=== PATIENT | male | born 1945 | race Caucasian/White ===

== ENCOUNTER 2017-08-03 08:42 | Day surgery (SDC) | payer BC, MEDICARE, OTHER ==
[~2017-08-03 08:42] MED LIST: CHONDR SU A NA/HYALUR INTRAOC KIT (SURGICARE) ONE; EPINEPHRINE INJ/PF 1 MG/1 ML AMPULE ONE; KETOROLAC TROMETHAMINE 0.45% 4 DROP/0.4 ML DROPERETTE OS PRN; LIDOCAINE 1% INJ-PF (10 MG/ML) 30 ML SDV ONE; TOBRAMYCIN SULFATE/DEXAMETH OPH OINTMENT 3.5 GM ONE
[2017-08-03] MEDS: CYCLOPENTOLATE 0.2%/PHENYLEPHRINE 1% OPH SOLN 2 ML OS PRN ×3 (08:55→09:16)
[2017-08-03] MEDS: TROPICAMIDE 1% OPH SOLN 3 ML OS PRN ×3 (08:55→09:16)
[2017-08-03] MEDS: TETRACAINE HCL 0.5% OPH SOLN 0.6 ML DROPERETTE OS PRN ×3 (08:56→09:27)
[2017-08-03] MEDS: BESIFLOXACIN HCL 0.6% OPH SUSP 5 ML BOTTLE OS PRN ×3 (08:56→09:48)
[2017-08-03] MEDS ORDERED: MIDAZOLAM 2 MG/2 ML INJ ONE ×2 (09:10)
[2017-08-03] MEDS ORDERED: FENTANYL CITRATE INJ/PF 100 MCG/2 ML AMPUL ONE (09:11)
== END 2017-08-03 10:31 | disposition home or self-care (01) ==
LOC: SC 08:42
PROVIDERS: ATTEND Ophthalmology
DX: H25.12 Age-related nuclear cataract, left eye (principal); I10 Essential (primary) hypertension; E78.00 Pure hypercholesterolemia, unspecified; M19.90 Unspecified osteoarthritis, unspecified site; G47.30 Sleep apnea, unspecified; Z88.8 Allergy status to other drugs, medicaments and biological substances; Z79.82 Long term (current) use of aspirin; Z79.899 Other long term (current) drug therapy
CPT/HCPCS: 66984; V2630; J2250; J3490 ×3; J0171; J3010; 142

== ENCOUNTER 2017-08-10 16:56 | Emergency (ER) | payer OTHER, MEDICARE ==
--- NOTE | 2017-08-10 18:23 | ER Document Report ---
ED Medical Screen (RME) - General Chief Complaint: Blood Pressure Problem Stated Complaint: BLOOD PRESSURE ISSUES Time Seen by Provider: 08/10/17 18:15 TRAVEL OUTSIDE OF THE [place] IN LAST 30 DAYS: No - HPI Notes: 08/10/17 18:17 Patient is a 71-year-old male with history of hypertension who presents to the ED via EMS with concern of elevated blood pressure, intermittent chest tightness , dizziness, intermittent headache, agitation, and an occasional cough. Patient states that the symptoms began over the last several days. states that she has noticed a personality change as he is usually an easy-going and laid back person, but has been lashing out and very agitated recently. 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 Patient is still eating and drinking I difficulties. He is urinating normally and having normal bowel movements. Patient states that he currently does not have any headache or chest pain at this moment. called EMS because his blood pressure was elevated and having another episode of agitation. Denies any fever, head injury, neck pain, URI, sore throat, palpitations, syncope, shortness of breath, wheeze, dyspnea, abdominal pain, nausea/vomiting/diarrhea, urinary retention, dysuria, hematuria , loss of control of bowel or bladder, numbness/tingling, saddle anesthesia, muscle paralysis/weakness, or rash. I have treated and performed a rapid initial assessment of this patient. A comprehensive ED assessment and evaluation of the patient, analysis of test results and completion of medical decision making process will be conducted by additional ED providers. PHYSICAL EXAMINATION: GENERAL: Well-appearing, well-nourished and in no acute distress. A&Ox4. Answers questions appropriately. Eyes: PERRLA, EOMI. LUNGS: Breath sounds clear to auscultation bilaterally and equal. No wheezes rales or rhonchi. HEART: Regular rate and rhythm without murmurs, rubs, gallops. ABDOMEN: difficult too assess in chair. Extremities: No cyanosis, clubbing, or edema b/l. MS: Strength b/l equal 5+/5. NEUROLOGICAL: Normal speech, normal gait. NIH 0. Cranial nerves grossly intact. GCS 15. Pronator drift neg. PSYCH: Normal mood, normal affect. - Related Data Allergies/Adverse Reactions: No Known Allergies Allergy (Verified 08/10/17 16:57) Past Medical History - Past Medical History Cardiac Medical History: Reports: Hx Hypertension - MEDS Denies: Hx Heart Attack Pulmonary Medical History: Denies: Hx Asthma Neurological Medical History: Denies: Hx Cerebrovascular Accident, Hx Seizures - HX OF BREAKDOWNS GI Medical History: Denies: Hx Hepatitis, Hx Hiatal Hernia, Hx Ulcer Infectious Medical History: Denies: Hx Hepatitis Past Surgical History: Denies: Hx Open Heart Surgery, Hx Pacemaker Physical Exam - Vital signs Vitals: Temp Pulse Resp BP Pulse Ox 97.9 F 67 16 202/102 H 97 08/10/17 17:04 08/10/17 17:04 08/10/17 17:04 08/10/17 17:04 08/10/17 17:04 Course - Vital Signs Vital signs: Temp Pulse Resp BP Pulse Ox 97.9 F 67 16 202/102 H 97 08/10/17 17:04 08/10/17 17:04 08/10/17 17:04 08/10/17 17:04 08/10/17 17:04
[2017-08-10 18:27] LABS: ABSOLUTE EOSINOPHILS # (AUTO) 0.2 10^3/uL (0.0-0.6); ABSOLUTE LYMPHOCYTES (AUTO) 2.4 10^3/uL (0.5-4.7); ABSOLUTE MONOCYTES (AUTO) 0.6 10^3/uL (0.1-1.4); ABSOLUTE NEUT (AUTO) 4.5 10^3/uL (1.7-8.2); BASOPHILS % (AUTO) 0.5 % (0-2); EOSINOPHILS % (AUTO) 2.2 % (0-6); HEMATOCRIT 41.7 % (37.9-51.0); HEMOGLOBIN 13.9 g/dL (13.5-17.0); LYMPHOCYTES % (AUTO) 31.1 % (13-45); MEAN CORPUSCULAR HEMOGLOBIN 29.5 pg (27.0-33.4); MEAN CORPUSCULAR HGB CONC 33.4 g/dL (32.0-36.0); MEAN CORPUSCULAR VOLUME 88 fl (80-97); MONOCYTES % (AUTO) 8.3 % (3-13); PLATELET COUNT 413 10^3/uL (150-450); RED BLOOD COUNT 4.72 10^6/uL (4.35-5.55); RED CELL DISTRIBUTION WIDTH 13.4 % (11.5-14.0); SEGMENTED NEUTROPHILS % (AUTO) 57.9 % (42-78); TOTAL CELLS COUNTED % (AUTO) 100 %; WHITE BLOOD COUNT 7.8 10^3/uL (4.0-10.5)
--- NOTE | 2017-08-10 18:57 | RADIOLOGY REPORT (SQ) ---
EXAM DESCRIPTION: CHEST SINGLE VIEW COMPLETED DATE/TIME: 08/10/2017 6:37 pm REASON FOR STUDY: cough, chest pain COMPARISON: None. EXAM PARAMETERS: NUMBER OF VIEWS: One view. TECHNIQUE: Single frontal radiographic view of the chest acquired. RADIATION DOSE: NA LIMITATIONS: None. FINDINGS: LUNGS AND PLEURA: No opacities, masses or pneumothorax. No pleural effusion. MEDIASTINUM AND HILAR STRUCTURES: No masses. Contour normal. HEART AND VASCULAR STRUCTURES: Heart normal in size. Normal vasculature. BONES: No acute findings. HARDWARE: None in the chest. OTHER: No other significant finding. IMPRESSION: NO ACUTE RADIOGRAPHIC FINDING IN THE CHEST. TECHNICAL DOCUMENTATION: JOB ID: [id number] [employer]- All Rights Reserved Reading location - IP/workstation name: [email or web address]
--- NOTE | 2017-08-10 19:02 | RADIOLOGY REPORT (SQ) ---
EXAM DESCRIPTION: CT HEAD WITHOUT COMPLETED DATE/TIME: 08/10/2017 6:44 pm REASON FOR STUDY: intermittent ZULETA with agitation/personality changes COMPARISON: None. TECHNIQUE: Axial images acquired through the brain without intravenous contrast. Images reviewed wi th bone, brain and subdural windows. Additional sagittal and coronal reconstructions were generated. Images stored on PACS. All CT scanners at this facility use dose modulation, iterative reconstruction, and/or weight based d osing when appropriate to reduce radiation dose to as low as reasonably achievable (ALARA). [facility]: Dose Right [facility]: CareDose [facility]: Dose Right [facility]: Teradose 4D [facility]: Smart [employer] RADIATION DOSE: CT Rad equipment meets quality standard of care and radiation dose reduction techniq ues were employed. CTDIvol: 53.2 mGy. DLP: 991 mGy-cm. mGy. LIMITATIONS: None. FINDINGS: VENTRICLES: Normal size and contour. CEREBRUM: No masses. No hemorrhage. No midline shift. No evidence for acute infarction. Normal gra y/white matter differentiation. No areas of low density in the white matter. CEREBELLUM: No masses. No hemorrhage. No alteration of density. No evidence for acute infarction. EXTRAAXIAL SPACES: No fluid collections. No masses. ORBITS AND GLOBE: No intra- or extraconal masses. Normal contour of globe without masses. CALVARIUM: No fracture. PARANASAL SINUSES: No fluid or mucosal thickening. SOFT TISSUES: No mass or hematoma. OTHER: No other significant finding. IMPRESSION: NORMAL BRAIN CT WITHOUT CONTRAST. EVIDENCE OF ACUTE STROKE: NO. COMMENT: Quality ID # [id number]: Final reports with documentation of one or more dose reduction techniques (e.g., Automated exposure control, adjustment of the mA and/or kV according to patient size, use of iterative reconstruction technique) TECHNICAL DOCUMENTATION: JOB ID: [id number] [employer]- All Rights Reserved Reading location - IP/workstation name: [email or web address]
[2017-08-10 19:25] LABS: ALANINE AMINOTRANSFERASE 39 U/L (21-72); ALBUMIN 4.5 g/dL (3.5-5.0); ALKALINE PHOSPHATASE 128 U/L (38-126); ANION GAP 14 (5-19); ASPARTATE AMINO TRANSFERASE 38 U/L (17-59); BILIRUBIN,DIRECT 0.5 mg/dL (0.0-0.4); BILIRUBIN,TOTAL 1.7 mg/dL (0.2-1.3); BLOOD UREA NITROGEN 14 mg/dL (7-20); CALCIUM 10.7 mg/dL (8.4-10.2); CARBON DIOXIDE 28 mmol/L (22-30); CHLORIDE 100 mmol/L (98-107); CREATINE KINASE 44 U/L (55-170); GLUCOSE 100 mg/dL (75-110); TOTAL PROTEIN 7.9 g/dL (6.3-8.2)
[2017-08-10 19:31] LABS: APPEARANCE,URINE CLEAR; BILIRUBIN,URINE NEGATIVE (NEGATIVE); COLOR,URINE YELLOW; GLUCOSE, URINE NEGATIVE (NEGATIVE); KETONES,URINE NEGATIVE (NEGATIVE); LEUKOCYTE ESTERASE,URINE NEGATIVE (NEGATIVE); NITRITE,URINE NEGATIVE (NEGATIVE); PROTEIN,URINE NEGATIVE (NEGATIVE); URINE SPECIFIC GRAVITY 1.009; UROBILINOGEN,URINE NEGATIVE mg/dL (<2.0)
[2017-08-10 19:36] LABS: CREATINE KINASE MB 0.71 ng/mL (<4.55); TROPONIN I 0.022 ng/mL
--- NOTE | 2017-08-10 21:56 | ER Document Report ---
ED Blood Pressure Problem - General Chief Complaint: Blood Pressure Problem Stated Complaint: BLOOD PRESSURE ISSUES Time Seen by Provider: 08/10/17 18:15 Mode of Arrival: Medic Information source: Patient, Relative TRAVEL OUTSIDE OF THE [place] IN LAST 30 DAYS: No - HPI Patient complains to provider of: High blood pressure Onset: Last week - PROBABLY, NOT SURE Onset/Duration: Gradual Quality of pain: No pain Problem is: Chronic problem Pt currently taking medication for problem: Yes - HCTZ, 12.5mg/d Associated symptoms: Other - MILD CONFUSION, MEMORY LAPSES Similar symptoms previously: Yes Recently seen / treated by doctor: No Notes: Patient has a known history of sleep apnea, admits to being noncompliant with his CPAP mask. - Related Data Allergies/Adverse Reactions: No Known Allergies Allergy (Verified 08/10/17 16:57) Past Medical History - General Information source: Patient, Relative - Social History Smoking Status: Never Smoker Chew tobacco use (# tins/day): No Frequency of alcohol use: None Drug Abuse: None Lives with: Spouse/Significant other Family History: Hypertension Patient has suicidal ideation: No Patient has homicidal ideation: No - Past Medical History Cardiac Medical History: Reports: Hx Hypertension - MEDS Denies: Hx Heart Attack Pulmonary Medical History: Reports: Hx Sleep Apnea Denies: Hx Asthma Neurological Medical History: Denies: Hx Cerebrovascular Accident, Hx Seizures - HX OF BREAKDOWNS Renal/ Medical History: Denies: Hx Peritoneal Dialysis GI Medical History: Denies: Hx Hepatitis, Hx Hiatal Hernia, Hx Ulcer Infectious Medical History: Denies: Hx Hepatitis Past Surgical History: Reports: Hx Urinary Tract Surgery - PROSTATE Bx. Denies : Hx Open Heart Surgery, Hx Pacemaker Review of Systems - Review of Systems Constitutional: No symptoms reported EENT: No symptoms reported Cardiovascular: No symptoms reported. denies: Chest pain, Dyspnea Respiratory: No symptoms reported Gastrointestinal: No symptoms reported Genitourinary: No symptoms reported Musculoskeletal: No symptoms reported Skin: No symptoms reported Neurological/Psychological: See HPI Physical Exam - Vital signs Vitals: Temp Pulse Resp BP Pulse Ox 97.9 F 67 16 202/102 H 97 08/10/17 17:04 08/10/17 17:04 08/10/17 17:04 08/10/17 17:04 08/10/17 17:04 Interpretation: Hypertensive. No: Tachycardic, Tachypneic - General General appearance: Appears well, Alert In distress: None - HEENT Head: Normocephalic Eyes: Normal Conjunctiva: Normal Ears: Normal Nasal: Normal Mouth/Lips: Normal Mucous membranes: Normal - Respiratory Respiratory status: No respiratory distress Breath sounds: Normal - Cardiovascular Rhythm: Regular Heart sounds: Normal auscultation Murmur: No - Abdominal Inspection: Normal Distension: No distension Bowel sounds: Normal - Extremities General upper extremity: Normal inspection General lower extremity: Normal inspection. No: Tender, Edema - Neurological Neuro grossly intact: Yes Cognition: Normal Orientation: AAOx4 - Psychological Associated symptoms: Normal affect, Normal mood - Skin Skin Temperature: Warm Skin Moisture: Dry Skin Color: Normal Skin Turgor: Elastic Course - Vital Signs Vital signs: Temp Pulse Resp BP Pulse Ox 97.9 F 67 13 175/97 H 97 08/10/17 17:04 08/10/17 17:04 08/10/17 23:01 08/10/17 23:01 08/10/17 23:01 - Laboratory Result Diagrams: 08/10/17 16:28 08/10/17 16:28 Laboratory results interpreted by me: 08/10/17 16:28 Calcium 10.7 H Total Bilirubin 1.7 H Direct Bilirubin 0.5 H Alkaline Phosphatase 128 H Creatine Kinase 44 L - Diagnostic Test Radiology reviewed: Image reviewed, Reports reviewed - EKG Interpretation by Me EKG shows normal: Sinus rhythm, [place], Intervals, ST-T Waves. abnormal: QRS Complexes - ? OLD LAT. ME Rate: Normal Rhythm: NSR [place]/QRS: Left axis deviation Discharge - Discharge Clinical Impression: Hypertension, essential Cholelithiasis Qualifiers: Cholelithiasis location: gallbladder Cholecystitis presence: without cholecystitis Biliary obstruction: without biliary obstruction Qualified Code(s) : K80.20 - Calculus of gallbladder without cholecystitis without obstruction Sleep apnea Qualifiers: Sleep apnea type: unspecified type Qualified Code(s): G47.30 - Sleep apnea, unspecified Condition: Stable Disposition: HOME, SELF-CARE Instructions: High Blood Pressure, Requiring Treatment ([facility]), Hydrochlorothiazide ([facility]), Beta Blockers ([facility]) Additional Instructions: TAKE LOPRESSOR (METOPROLOL) DIRECTED, BEGINNING TOMORROW (TUESDAY). CONTINUE TAKING HYDROCHLOROTHIAZIDE BEFORE. USE YOUR CPAP MASK DIRECTED, ALL NIGHT AND EVERY NIGHT. FOLLOW UP FOR BLOOD PRESSURE RE-CHECK AUGUST 12. RETURN TO E.R. IF PROBLEMS, ANY TIME. Prescriptions: Metoprolol Tartrate [Lopressor 25 mg Tablet] 12.5 mg PO Q12 #30 tab
--- NOTE | 2017-08-10 23:02 | EKG REPORT ---
SEVERITY:- ABNORMAL ECG - SINUS RHYTHM BORDERLINE LEFT AXIS DEVIATION PROBABLE ANTEROLATERAL INFARCT, OLD : Confirmed by: Pranay Mcrae 10-Aug-2017 23:02:16
[2017-08-10] MEDS ORDERED: METOPROLOL TARTRATE 25 MG TABLET PO ONE (23:27)
--- NOTE | 2017-08-11 01:26 | RADIOLOGY REPORT (SQ) ---
EXAM DESCRIPTION: U/S ABDOMEN LIMITED W/O DOP CLINICAL HISTORY: ELEVATED LFT's COMPARISON: None. TECHNIQUE: Real-time sonographic images of the right upper abdomen were obtained using a curved multihertz transducer. FINDINGS: Pancreas: The visualized portions of the pancreas are unremarkable. Vascular: The visualized portions of the aorta and IVC are unremarkable. Liver: The liver has normal contour and echogenicity. Hepatopedal flow in the portal vein. The common bile duct measures 0.5 cm. Gallbladder: Normal gallbladder wall thickness. No pericholecystic fluid. Echogenic mobile structures with posterior shadowing as well as small amount of echogenic sludge. Negative reported sonographic Durant sign. Right Kidney: The right kidney measures 10.5 cm in length. There is a 1.1 cm echogenic focus in the interpolar right kidney likely representing a nonobstructing calculus. No hydronephrosis. IMPRESSION: 1. Cholelithiasis and gallbladder sludge without other sonographic evidence of acute cholecystitis. 2. There is a 1.1 cm nonobstructing interpolar right renal calculus.
[2017-08-11 02:19] VITALS: BP 141/87
== END 2017-08-11 02:21 | disposition home or self-care (01) ==
LOC: ER 16:56
DX: I10 Essential (primary) hypertension (principal); K80.20 Calculus of gallbladder without cholecystitis without obstruction; G47.30 Sleep apnea, unspecified
CPT/HCPCS: 36415; 70450; 71045; 76705; 80053; 81001; 82550; 82553; 83735; 84484; 85025; 93005; 93010; 99285

== ENCOUNTER 2017-08-24 06:41 | Day surgery (SDC) | payer OTHER, MEDICARE ==
[2017-08-24] MEDS: TETRACAINE HCL 0.5% OPH SOLN 0.6 ML DROPERETTE OD PRN ×5 (06:52→07:31)
[2017-08-24] MEDS: KETOROLAC TROMETHAMINE 0.45% 4 DROP/0.4 ML DROPERETTE OD PRN ×2 (06:52→06:55)
[2017-08-24] MEDS: TROPICAMIDE 1% OPH SOLN 3 ML OD PRN ×4 (06:52→07:14)
[2017-08-24] MEDS: CYCLOPENTOLATE 0.2%/PHENYLEPHRINE 1% OPH SOLN 2 ML OD PRN ×4 (06:52→07:14)
[2017-08-24] MEDS: BESIFLOXACIN HCL 0.6% OPH SUSP 5 ML BOTTLE OD PRN ×5 (06:52→07:52)
[2017-08-24] MEDS ORDERED: MIDAZOLAM 2 MG/2 ML INJ ONE (07:25)
[2017-08-24] MEDS: CHONDR SU A NA/HYALUR INTRAOC KIT (SURGICARE) ONE ×2 (07:39)
[2017-08-24] MEDS: LIDOCAINE 1% INJ-PF (10 MG/ML) 30 ML SDV ONE ×2 (07:39)
[2017-08-24] MEDS: EPINEPHRINE INJ/PF 1 MG/1 ML AMPULE ONE ×2 (07:39)
[2017-08-24] MEDS: TOBRAMYCIN SULFATE/DEXAMETH OPH OINTMENT 3.5 GM ONE ×2 (07:52)
== END 2017-08-24 08:37 | disposition home or self-care (01) ==
LOC: SC 06:41
PROVIDERS: ATTEND Ophthalmology
PROC: 08RJ3JZ Replacement of Right Lens with Synthetic Substitute, Percutaneous Approach (ICD-10-PCS; principal; 2017-08-24 07:30)
DX: H25.11 Age-related nuclear cataract, right eye (principal); Z98.42 Cataract extraction status, left eye; I10 Essential (primary) hypertension; E78.00 Pure hypercholesterolemia, unspecified; G47.30 Sleep apnea, unspecified; N40.0 Benign prostatic hyperplasia without lower urinary tract symptoms; Z79.82 Long term (current) use of aspirin; Z79.899 Other long term (current) drug therapy; Z88.8 Allergy status to other drugs, medicaments and biological substances
CPT/HCPCS: 66984; V2630; J2250; J3490 ×3; J0171; 142

== ENCOUNTER 2018-01-03 16:46 | Emergency (ER) | payer OTHER, MEDICARE ==
[2018-01-03 16:55] VITALS: BP 115/64
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
--- NOTE | 2018-01-03 19:48 | EKG REPORT ---
SEVERITY:- ABNORMAL ECG - SINUS BRADYCARDIA BORDERLINE LEFT AXIS DEVIATION LATERAL INFARCT, OLD : Confirmed by: Alfredo Abreu MD 03-Jan-2018 19:48:01
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
[2018-01-03] MEDS ORDERED: DIPH/PERTUSS(ACELL)/TETANUS VAC/PF 0.5 ML SYR (>=10YO) IM ONE (21:55)
--- NOTE | 2018-01-03 22:29 | RADIOLOGY REPORT (SQ) ---
EXAM DESCRIPTION: CERV SP 3 VIEW OR LESS COMPLETED DATE/TIME: 01/03/2018 9:47 pm REASON FOR STUDY: midline tenderness COMPARISON: None. NUMBER OF VIEWS: Three views. TECHNIQUE: AP, lateral and odontoid radiographic images acquired of the cervical spine. LIMITATIONS: None. FINDINGS: MINERALIZATION: Normal. ALIGNMENT: Minimal anterolisthesis of C4 on C5. VERTEBRAE: Vertebral bodies of normal height. DISCS: Mild disc space narrowing at C5-6 and to a lesser degree C3-4 HARDWARE: None in the spine. SOFT TISSUES: No masses or calcifications. Lung apices clear. OTHER: No other significant finding. IMPRESSION: Minimal anterolisthesis of C4 on C5. Degenerative disc changes. TECHNICAL DOCUMENTATION: JOB ID: [id number] [email or web address]- All Rights Reserved Reading location - IP/workstation name: [email or web address]
== END 2018-01-03 22:10 | disposition home or self-care (01) ==
LOC: ER 16:46
DX: S01.01XA Laceration without foreign body of scalp, initial encounter (principal); S13.4XXA Sprain of ligaments of cervical spine, initial encounter; V69.40XA Driver of heavy transport vehicle injured in collision with unspecified motor vehicles in traffic accident, initial encounter; R42 Dizziness and giddiness; R51 Headache; R11.0 Nausea; M54.2 Cervicalgia; I10 Essential (primary) hypertension; Z23 Encounter for immunization
CPT/HCPCS: 70450; 72040; 90471; 90715; 93005; 93010; 99284

== ENCOUNTER 2019-03-23 12:20 | Observation (INO) | payer OTHER, MEDICARE ==
--- NOTE | 2019-03-23 13:00 | ER Document Report ---
ED Medical Screen (RME) - General Chief Complaint: Chest Tightness Stated Complaint: CHEST PAIN Time Seen by Provider: 03/23/19 12:48 Primary Care Provider: NAYELY ADAME MD [Primary Care Provider] - Follow up as needed Notes: Patient is a 73-year-old male with a history of hypertension, high cholesterol and PTSD who presents to the emergency department with a chief complaint of chest tightness. Patient reports he was sent here from the [place]. Patient reports he is had intermittent chest tightness for 1 week. He states he feels like this is brought on by stress and subdued anger. reports yesterday while sitting at the kitchen table he had left eye drooping. She states this is around 6 PM. She states he did go to bed afterwards and woke up this morning and his eye was normal. Patient denies any neuro deficits at this time. states he has had memory loss over the past 6 months and is concerned about possible Alzheimer's. She reports the memory loss is worse. TRAVEL OUTSIDE OF THE [place] IN LAST 30 DAYS: No - Related Data Allergies/Adverse Reactions: No Known Allergies Allergy (Verified 03/23/19 12:48) Home Medications: bp. cholesterol Past Medical History - Social History Chew tobacco use (# tins/day): No Frequency of alcohol use: Occasional Drug Abuse: None - Past Medical History Cardiac Medical History: Reports: Hx Hypertension - MEDS Denies: Hx Heart Attack Pulmonary Medical History: Reports: Hx Sleep Apnea Denies: Hx Asthma Neurological Medical History: Denies: Hx Cerebrovascular Accident, Hx Seizures - HX OF BREAKDOWNS, BIPOLAR Renal/ Medical History: Denies: Hx Peritoneal Dialysis GI Medical History: Denies: Hx Hepatitis, Hx Hiatal Hernia, Hx Ulcer Infectious Medical History: Denies: Hx Hepatitis Past Surgical History: Reports: Hx Urinary Tract Surgery - PROSTATE Bx. Denies: Hx Open Heart Surgery, Hx Pacemaker Physical Exam - Vital signs Vitals: Temp Pulse Resp BP Pulse Ox 98.4 F 59 L 16 121/70 100 03/23/19 12:31 03/23/19 12:31 03/23/19 12:31 03/23/19 12:31 03/23/19 12:31 Course - Re-evaluation Re-evalutation: 03/23/19 12:59 No facial droop or eye droop noted in triage. I have greeted and performed a rapid initial assessment of this patient. A comprehensive ED assessment and evaluation of the patient, analysis of test results and completion of the medical decision making process will be conducted by additional ED providers. - Vital Signs Vital signs: Temp Pulse Resp BP Pulse Ox 98.4 F 59 L 16 121/70 100 03/23/19 12:31 03/23/19 12:31 03/23/19 12:31 03/23/19 12:31 03/23/19 12:31 Doctor's Discharge - Discharge Referrals: NAYELY ADAME MD [Primary Care Provider] - Follow up as needed
[2019-03-23 13:46] LABS: ABSOLUTE EOSINOPHILS # (AUTO) 0.2 10^3/uL (0.0-0.6); ABSOLUTE LYMPHOCYTES (AUTO) 1.4 10^3/uL (0.5-4.7); ABSOLUTE MONOCYTES (AUTO) 0.8 10^3/uL (0.1-1.4); ABSOLUTE NEUT (AUTO) 8.9 10^3/uL (1.7-8.2); BASOPHILS % (AUTO) 0.4 % (0-2); EOSINOPHILS % (AUTO) 1.5 % (0-6); HEMATOCRIT 41.3 % (37.9-51.0); HEMOGLOBIN 13.9 g/dL (13.5-17.0); LYMPHOCYTES % (AUTO) 12.5 % (13-45); MEAN CORPUSCULAR HEMOGLOBIN 30.4 pg (27.0-33.4); MEAN CORPUSCULAR HGB CONC 33.7 g/dL (32.0-36.0); MEAN CORPUSCULAR VOLUME 90 fl (80-97); MONOCYTES % (AUTO) 7.3 % (3-13); PLATELET COUNT 343 10^3/uL (150-450); RED BLOOD COUNT 4.58 10^6/uL (4.35-5.55); RED CELL DISTRIBUTION WIDTH 13.1 % (11.5-14.0); SEGMENTED NEUTROPHILS % (AUTO) 78.3 % (42-78); TOTAL CELLS COUNTED % (AUTO) 100 %; WHITE BLOOD COUNT 11.4 10^3/uL (4.0-10.5)
--- NOTE | 2019-03-23 13:51 | RADIOLOGY REPORT (SQ) ---
EXAM DESCRIPTION: CHEST 2 VIEWS COMPLETED DATE/TIME: 03/23/2019 1:38 pm REASON FOR STUDY: left eye drooping yesterday COMPARISON: 08/10/2017. EXAM PARAMETERS: NUMBER OF VIEWS: two views TECHNIQUE: Digital Frontal and Lateral radiographic views of the chest acquired. RADIATION DOSE: NA LIMITATIONS: none FINDINGS: LUNGS AND PLEURA: No opacities, masses or pneumothorax. No pleural effusion. MEDIASTINUM AND HILAR STRUCTURES: No masses or contour abnormalities. HEART AND VASCULAR STRUCTURES: Heart normal size. No evidence for failure. BONES: No acute findings. HARDWARE: None in the chest. OTHER: No other significant finding. IMPRESSION: NO ACUTE RADIOGRAPHIC FINDING IN THE CHEST. TECHNICAL DOCUMENTATION: JOB ID: [id number] [employer]- All Rights Reserved Reading location - IP/workstation name: [email or web address]
[2019-03-23 13:59] LABS: AMORPHOUS SEDIMENT,URINE TRACE /HPF; APPEARANCE,URINE SLIGHTLY-CLOUDY; BILIRUBIN,URINE NEGATIVE (NEGATIVE); COLOR,URINE YELLOW; GLUCOSE, URINE NEGATIVE (NEGATIVE); KETONES,URINE NEGATIVE (NEGATIVE); LEUKOCYTE ESTERASE,URINE NEGATIVE (NEGATIVE); NITRITE,URINE NEGATIVE (NEGATIVE); PROTEIN,URINE NEGATIVE (NEGATIVE); URINE SPECIFIC GRAVITY 1.018; UROBILINOGEN,URINE NEGATIVE mg/dL (<2.0)
--- NOTE | 2019-03-23 14:10 | RADIOLOGY REPORT (SQ) ---
EXAM DESCRIPTION: CT HEAD WITHOUT COMPLETED DATE/TIME: 03/23/2019 1:57 pm REASON FOR STUDY: left eye drooping yesterday COMPARISON: 01/03/2018 TECHNIQUE: Axial images acquired through the brain without intravenous contrast. Images reviewed wi th bone, brain and subdural windows. Additional sagittal and coronal reconstructions were generated. Images stored on PACS. All CT scanners at this facility use dose modulation, iterative reconstruction, and/or weight based d osing when appropriate to reduce radiation dose to as low as reasonably achievable (ALARA). [facility]: Dose Right [facility]: CareDose [facility]: Dose Right [facility]: Teradose 4D [facility]: [employer] RADIATION DOSE: CT Rad equipment meets quality standard of care and radiation dose reduction techniq ues were employed. CTDIvol: 53.2 mGy. DLP: 991 mGy-cm. mGy. LIMITATIONS: None. FINDINGS: VENTRICLES: Normal size and contour. CEREBRUM: No masses. No hemorrhage. No midline shift. No evidence for acute infarction. Normal gra y/white matter differentiation. No areas of low density in the white matter. CEREBELLUM: No masses. No hemorrhage. No alteration of density. No evidence for acute infarction. EXTRAAXIAL SPACES: No fluid collections. No masses. ORBITS AND GLOBE: No intra- or extraconal masses. Normal contour of globe without masses. CALVARIUM: No fracture. PARANASAL SINUSES: No fluid or mucosal thickening. SOFT TISSUES: No mass or hematoma. OTHER: No other significant finding. IMPRESSION: NORMAL BRAIN CT WITHOUT CONTRAST. EVIDENCE OF ACUTE STROKE: NO. COMMENT: Quality ID # [id number]: Final reports with documentation of one or more dose reduction techniques (e.g., Automated exposure control, adjustment of the mA and/or kV according to patient size, use of iterative reconstruction technique) TECHNICAL DOCUMENTATION: JOB ID: [id number] [employer]- All Rights Reserved Reading location - IP/workstation name: [email or web address]
[2019-03-23 14:38] LABS: ALBUMIN 4.3 g/dL (3.5-5.0); ALKALINE PHOSPHATASE 124 U/L (38-126); ANION GAP 10 (5-19); ASPARTATE AMINO TRANSFERASE 40 U/L (17-59); BILIRUBIN,DIRECT 0.1 mg/dL (0.0-0.4); BILIRUBIN,TOTAL 1.6 mg/dL (0.2-1.3); BLOOD UREA NITROGEN 17 mg/dL (7-20); CALCIUM 10.6 mg/dL (8.4-10.2); CARBON DIOXIDE 28 mmol/L (22-30); CHLORIDE 102 mmol/L (98-107); GLUCOSE 86 mg/dL (75-110); POTASSIUM 4.7 mmol/L (3.6-5.0); TOTAL PROTEIN 7.9 g/dL (6.3-8.2)
[2019-03-23] MEDS ORDERED: ASPIRIN 325 MG TABLET PO ONE (18:04)
--- NOTE | 2019-03-23 18:07 | ER Document Report ---
ED Cardiac - General Chief Complaint: Chest Tightness Stated Complaint: CHEST PAIN Time Seen by Provider: 03/23/19 12:48 Notes: Patient is a 73-year-old male who presents the emergency department with chest tightness. Patient states that he has had on and off pain, but relates it to stress. Patient states that he is a [place] vet. He also states that recently he has had some gastric problems. [facility] and he w as referred to the emergency department, as he had pressure across the middle of his chest. His also noticed that he had a little bit of left-sided facial droop and was referred here to the emergency department. Patient denies any new weakness. Patient states that the pressure in his chest comes and goes. He states that it is substernal. Describes it as an aching gnawing pain. Patient does not take any GERD medication. Patient has a history of hypertension, PTSD, and possible beginning stages of dementia. TRAVEL OUTSIDE OF THE [place] IN LAST 30 DAYS: No - Related Data Allergies/Adverse Reactions: No Known Allergies Allergy (Verified 03/23/19 12:48) Home Medications: bp. cholesterol Past Medical History - Social History Smoking Status: Never Smoker Chew tobacco use (# tins/day): No Frequency of alcohol use: Occasional Drug Abuse: None Family History: Hypertension Patient has suicidal ideation: No Patient has homicidal ideation: No - Past Medical History Cardiac Medical History: Reports: Hx Hypertension - MEDS Denies: Hx Heart Attack Pulmonary Medical History: Reports: Hx Sleep Apnea Denies: Hx Asthma Neurological Medical History: Denies: Hx Cerebrovascular Accident, Hx Seizures - HX OF BREAKDOWNS, BIPOLAR Renal/ Medical History: Denies: Hx Peritoneal Dialysis GI Medical History: Denies: Hx Hepatitis, Hx Hiatal Hernia, Hx Ulcer Infectious Medical History: Denies: Hx Hepatitis Past Surgical History: Reports: Hx Urinary Tract Surgery - PROSTATE Bx. Denies: Hx Open Heart Surgery, Hx Pacemaker Review of Systems - Review of Systems Notes: REVIEW OF SYSTEMS: CONSTITUTIONAL : Denies recent illness. Denies recent unintentional weight loss. Denies fever, chills, or sweats. EENT: Denies eye, ear, throat, or mouth pain, discharge, or symptoms. Denies nasal or sinus congestion. CARDIOVASCULAR: See HPI. RESPIRATORY: Denies shortness of breath, cough, congestion, difficulty breathing, or wheezing. GASTROINTESTINAL: Denies nausea, vomiting, and diarrhea. Denies abdominal pain. Denies constipation. GENITOURINARY: Denies difficulty urinating, burning, blood in urine, urgency or frequency. MUSCULOSKELETAL: Denies neck and back pain. Denies joint pain or swelling. SKIN: Denies rash, itchiness, or lesions HEMATOLOGIC : Denies easy bruising or bleeding. LYMPHATIC: Denies swollen, painful, enlarged glands. NEUROLOGICAL: See HPI. PSYCHIATRIC: Denies stress, anxiety, alteration in sleep patterns, or depression. All other systems reviewed and negative. Physical Exam - Vital signs Vitals: Temp Pulse Resp BP Pulse Ox 98.4 F 59 L 16 121/70 100 03/23/19 12:03/23/19 12:03/23/19 12:03/23/19 12:03/23/19 12:31 - Notes Notes: PHYSICAL EXAMINATION: GENERAL: Appears well, healthy, well-nourished, no acute distress. HEAD: Normocephalic, atraumatic. EYES: PERRL, conjunctiva normal, all extraocular movements intact, sclera n onicteric ENT: Moist mucous membranes. NECK: Supple, no noticeable swelling, redness, rash. Normal range of motion. LUNGS: Equal breath sounds bilaterally and clear to auscultation. No wheezes rales or rhonchi. CARDIOVASCULAR: S1-S2, regular rate, regular rhythm. Radial pulses 2+, normal. ABDOMEN: Normoactive bowel sounds. Soft, nontender, no guarding, no rebound tenderness, and no masses palpated. EXTREMITIES: Normal strength and range of motion, no pitting or edema. No cyanosis. NEUROLOGICAL: Moves all extremities upon command. Strength 5/5 in all extremities. Very slight facial droop noted on the left side. PSYCH: Normal mood, normal affect. SKIN: Warm, dry. No rash, lesions, ulcerations noted. Normal skin turgor. Course - Re-evaluation Re-evalutation: HEART Score: History:1 EK Age:2 Risk Factors: 1 Troponin:1 Total: 5 Patient's heart score is 5, which meets criteria for further evaluation. I have ordered Pepcid and Carafate to see if there is a GERD component. Chest x-ray is unremarkable. Patient has a slight leukocytosis of 11,400. Patient denies any cough. His calcium is slightly elevated. Patient has 2 negative troponins, but he has never had a stress test done before. Patient has also never had carotid Dopplers done. CT of the head is negative. 03/23/19 19:[address] Neville. The patient will be admitted to telemetry for observation. - Vital Signs Vital signs: Temp Pulse Resp BP Pulse Ox 98.4 F 59 L 14 146/76 H 99 03/23/19 12:31 03/23/19 12:31 03/23/19 21:01 03/23/19 21:01 03/23/19 21:01 - Laboratory Result Diagrams: 03/23/19 13:26 03/23/19 13:26 Laboratory results interpreted by me: 03/23/19 03/23/19 13:26 13:26 WBC 11.4 H Lymph % (Auto) 12.5 L Absolute Neuts (auto) 8.9 H Seg Neutrophils % 78.3 H Calcium 10.6 H Total Bilirubin 1.6 H - EKG Interpretation by Me Additional EKG results interpreted by me: 03/23/19 18:10 Sinus rhythm. Rate 60. TX 176; QRS 88; QT 420; QTc 420. No ST elevations or depressions noted. No significant change from previous EKG dated on 01/03/2018. Discharge - Discharge Clinical Impression: Facial droop Chest pain Qualifiers: Chest pain type: unspecified Qualified Code(s): R07.9 - Chest pain, unspecified Condition: Stable Disposition: ADMITTED OBSERVATION Admitting Provider: Jamin (Hospitalist) Unit Admitted: Telemetry
[2019-03-23] MEDS ORDERED: SUCRALFATE 1 GM TABLET PO ONE (19:14)
[2019-03-23] MEDS ORDERED: FAMOTIDINE 20 MG TABLET PO ONE (19:15)
[2019-03-23] MEDS ORDERED: NITROGLYCERIN 0.4 MG/TAB 25 TAB/BOTTLE SL PRN (19:43)
--- NOTE | 2019-03-23 20:49 | PDOC H&P ---
History of Present Illness Admission Date/PCP: 03/23/19 20:14 NAYELY ADAME MD Patient complains of: Chest tightness History of Present Illness: PAMELA HART is a 73 year old male who presented to the emergency room with a one-week history of chest tightness. He admits that he was seen earlier today at the [facility] and sent to the ER for further evaluation of his chest tightness. His chest tightness has been present intermittently for a week lasting for a few minutes at a time and being precipitated by emotional stress and anger. His chest pressure/tightness is of moderate intensity and is located the lower substernal area without radiation. He reports associated epigastric discomfort that is a gnawing and aching sensation that he has experienced frequently in the past with stressful situations. His epigastric discomfort is relieved by eating. He reports an accompanying left eye weakness present yesterday evening that resolved spontaneously overnight, he admits that he fr equently has this symptom when he is overtired. He also reports a gradual reduction in his short-term memory capability with occasional confusion. He denies prior similar episodes of chest tightness. He has not identified any additional aggravating or ameliorating factors for his chest tightness. In the emergency room he was found to have indeterminate cardiac enzymes x2 and an EKG that showed no evidence of acute myocardial ischemia or injury. CT scan of his head was negative for acute intracranial hemorrhage. Patient was subsequently admitted to observation status for further evaluation treatment. Past Medical History Cardiac Medical History: Reports: Hypertension - MEDS Denies: Atrial Fibrillation, Congestive Heart Failure, Coronary Artery Disease, Myocardial Infarction, Hyperlipidema Pulmonary Medical History: Reports: Sleep Apnea Denies: Asthma, Chronic Obstructive Pulmonary Disease (COPD) EENT Medical History: Reports: Cataracts Denies: Ears - Hearing aids Neurological Medical History: Denies: Hemorrhagic CVA, Ischemic CVA, Seizures Endocrine Medical History: Denies: Diabetes Mellitus Type 1, Diabetes Mellitus Type 2, Hyperthyroidism, Hypothyroidism, Obesity Renal/ Medical History: Denies: Chronic Kidney Disease, Nephrolithiasis Malignancy Medical History: Reports: None GI Medical History: Denies: Cirrhosis, Crohn's Disease, Hepatitis, Hiatal Hernia, Ulcerative Colitis Musculoskeltal Medical History: Denies: Arthritis, Gout Skin Medical History: Denies: Eczema, Psoriasis Psychiatric Medical History: Reports: Bipolar Disorder, Post Traumatic Stress Disorder Denies: Alcohol Dependency, Substance Abuse, Tobacco Dependency Traumatic Medical History: Reports: None Hematology: Denies: Anemia, Bleeding Tendencies Infectious Medical History: Reports: None Past Surgical History Past Surgical History: Reports: Other - Bilateral cataract surgery Social History Information Source: Patient Lives with: Spouse/Significant other Smoking Status: Never Smoker Electronic Cigarette use?: No Frequency of Alcohol Use: Occasional Hx Recreational Drug Use: No Drugs: None Hx Prescription Drug Abuse: No - Advance Directive Resuscitation Status: Full Code Surrogate healthcare decision maker:: Katrina Hart Family History Family History: CAD, CVA, Hypertension. denies: DM, Malignancy Parental Family History Reviewed: Yes Children Family History Reviewed: No Sibling(s) Family History Reviewed.: Yes Medication/Allergy Home Medications: Aspirin [Aspirin EC] 81 mg PO DAILY 07/29/17 Atorvastatin Calcium 20 mg PO DAILY 07/29/17 Hydrochlorothiazide 12.5 mg PO DAILY 07/29/17 Sertraline HCl 100 mg PO DAILY 07/29/17 Metoprolol Tartrate [Lopressor 25 mg Tablet] 12.5 mg PO Q12 08/23/17 Propylene Glycol [Lubricant Eye Drop] 1 drop OU BIDP PRN 03/23/19 Sildenafil Citrate [Viagra] 100 mg PO ASDIR PRN 03/23/19 Allergies/Adverse Reactions: No Known Allergies Allergy (Verified 03/23/19 12:48) Review of Systems Constitutional: ABSENT: chills, fever(s) Eyes: ABSENT: visual disturbances, other - Eye pain Ears: ABSENT: hearing changes, other - Ear pain Nose, Mouth, and Throat: ABSENT: mouth pain, sore throat Cardiovascular: PRESENT: as per HPI, chest pain - Chest tightness. ABSENT: dyspnea on exertion, edema, orthropnea, palpitations Respiratory: ABSENT: cough, dyspnea Gastrointestinal: PRESENT: as per HPI, abdominal pain. ABSENT: constipation, diarrhea, nausea, vomiting Genitourinary: ABSENT: dysuria, hematuria Musculoskeletal: ABSENT: back pain, joint swelling, muscle weakness Integumentary: ABSENT: pruritus, rash Neurological: PRESENT: as per HPI, confusion - Intermittent mild, focal weakness - Left eye/upper face drooping, memory loss - Over the last 6 months. ABSENT: abnormal movements, abnormal speech, convulsions, syncope Psychiatric: ABSENT: anxiety, depression Endocrine: ABSENT: cold intolerance, heat intolerance Hematologic/Lymphatic: ABSENT: easy bleeding, easy bruising Allergic/Immunologic: ABSENT: seasonal rhinorrhea Physical Exam Vital Signs: Temp Pulse Resp BP Pulse Ox 98.4 F 59 L 17 166/80 H 99 03/23/19 12:31 03/23/19 12:31 03/23/19 20:01 03/23/19 20:01 03/23/19 20:01 Intake & Output 03/21/19 03/22/19 03/23/19 23:59 23:59 23:59 Weight 74.7 kg General appearance: PRESENT: no acute distress, cooperative Head exam: PRESENT: atraumatic, normocephalic Eye exam: PRESENT: conjunctiva pink. ABSENT: conjunctival injection, scleral icterus Ear exam: PRESENT: normal external ear exam. ABSENT: bleeding, drainage Mouth exam: PRESENT: dry mucosa, neck supple Neck exam: ABSENT: thyromegaly, tracheal deviation Respiratory exam: PRESENT: clear to auscultation chava, symmetrical, unlabored Cardiovascular exam: PRESENT: RRR. ABSENT: clicks, gallop, rubs Pulses: PRESENT: normal radial pulses, normal dorsalis pedis pul Vascular exam: PRESENT: normal capillary refill. ABSENT: pallor GI/Abdominal exam: PRESENT: normal bowel sounds, soft Rectal exam: PRESENT: deferred Extremities exam: ABSENT: joint swelling, pedal edema Musculoskeletal exam: ABSENT: deformity, dislocation Neurological exam: PRESENT: alert, oriented to person, oriented to place, oriented to time, oriented to situation, CN II-XII grossly intact. ABSENT: motor sensory deficit Psychiatric exam: PRESENT: appropriate affect, normal mood Skin exam: PRESENT: dry, intact, warm. ABSENT: jaundice, rash, urticaria Results Laboratory Results: 03/23/19 13:26 03/23/19 13:26 03/23/19 03/23/19 03/23/19 13:14 13:26 13:26 WBC 11.4 H RBC 4.58 Hgb 13.9 Hct 41.3 MCV 90 MCH 30.4 MCHC 33.7 RDW 13.1 Plt Count 343 Seg Neutrophils % 78.3 H Sodium 140.1 Potassium 4.7 Chloride 102 Carbon Dioxide 28 Anion Gap 10 BUN 17 Creatinine 0.84 Est GFR ( Amer) > 60 Glucose 86 Calcium 10.6 H Total Bilirubin 1.6 H AST 40 Alkaline Phosphatase 124 Total Protein 7.9 Albumin 4.3 Urine Color YELLOW Urine Appearance SLIGHTLY-CLOUDY Urine pH 6.0 Ur Specific Finger 1.018 Urine Protein NEGATIVE Urine Glucose (UA) NEGATIVE Urine Ketones NEGATIVE Urine Blood NEGATIVE Urine Nitrite NEGATIVE Ur Leukocyte Esterase NEGATIVE Urine WBC (Auto) 3 Urine RBC (Auto) 2 03/23/19 03/23/19 13:26 18:34 Troponin I 0.019 0.015 Impressions: Chest X-Ray 03/23/19 12:56 IMPRESSION: NO ACUTE RADIOGRAPHIC FINDING IN THE CHEST. Head CT 03/23/19 12:56 IMPRESSION: NORMAL BRAIN CT WITHOUT CONTRAST. EVIDENCE OF ACUTE STROKE: NO. Assessment and Plan - Diagnosis (1) Chest tightness Is this a current diagnosis for this admission?: Yes (2) Weakness on left side of face Is this a current diagnosis for this admission?: Yes (3) Hypertension Qualifiers: Hypertension type: essential hypertension Qualified Code(s): I10 - Essential (primary) hypertension Is this a current diagnosis for this admission?: Yes (4) Bipolar disorder Qualifiers: Active/Remission status: in remission of unspecified degree Qualified Code(s): F31.70 - Bipolar disorder, currently in remission, most recent episode unspecified Is this a current diagnosis for this admission?: Yes (5) Post traumatic stress disorder (PTSD) Is this a current diagnosis for this admission?: Yes - Plan Summary Summary: Patient is admitted to observation status in a telemetry bed. He will have an MRI of his brain without contrast, a bilateral carotid Doppler evaluation and an echocardiogram performed to evaluate his left facial weakness. His chest pain will be evaluated with a Cardiolite stress test if his cardiac enzymes remain negative for acute coronary injury or ischemia. He will use morphine sulfate 2 to 4 mg IV every 2 hours on an as-needed basis for control of his chest pain/tightness. Nitroglycerin ointment 0.5 g every 6 hours will be applied. He will be continued on his usual medications for control of his chronic medical problems as appropriate. Further evaluations will be obtained as needed. - Time Time Spent with patient: 25-34 minutes Medications reviewed and adjusted accordingly: Yes Anticipated discharge: Home Within: within 48 hours - Inpatient Certification Based on my medical assessment, after consideration of the patient's comorbidities, presenting symptoms, or acuity I expect that the services needed warrant INPATIENT care.: Yes I certify that my determination is in accordance with my understanding of Medicare's requirements for reasonable and necessary INPATIENT services [42 CFR 412.3e].: Yes Medical Necessity: Need Close Monitoring Due to Risk of Patient Decompensation, Need For Continuous Telemetry Monitoring, Need for Neurological Checks, Risk of Complication if Not Cared For in Hospital, Risk of Diagnosis Which Will Require Inpatient Eval/Care/Monitoring
[2019-03-23] MEDS ORDERED: MAGNESIUM HYDROXIDE SUSP 30 ML UDCUP PO PRN (21:05)
[2019-03-23] MEDS ORDERED: PROMETHAZINE HCL INJ 25 MG/1 ML VIAL IV PRN (21:05)
[2019-03-23] MEDS ORDERED: TEMAZEPAM 15 MG CAPSULE PO PRN (21:05)
[2019-03-23] MEDS ORDERED: MAG HYDROX/AL HYDROX/SIMETH SUSP 30 ML UDCUP PO PRN (21:05)
[2019-03-23] MEDS ORDERED: MORPHINE SULFATE 10 MG/ML INJ IV PRN ×3 (21:09)
[2019-03-23] MEDS ORDERED: HYDRALAZINE HCL INJ/PF 20 MG/1 ML SDV IV PRN (21:09)
[2019-03-23] MEDS: FAMOTIDINE 20 MG TABLET PO SCH (22:41)
[2019-03-23] MEDS: SUCRALFATE 1 GM TABLET PO SCH (22:41)
[2019-03-23] MEDS: HEPARIN SOD (PORCINE) 5,000 UNIT/ML 1 ML VIAL SUBCUT SCH (22:42)
[2019-03-23] MEDS: METOCLOPRAMIDE HCL 10 MG TABLET PO SCH (22:43)
--- NOTE | 2019-03-23 23:31 | RADIOLOGY REPORT (SQ) ---
CLINICAL HISTORY: Cardiolite Stress Test COMPARISON: None. TECHNIQUE: MR BRAIN WITHOUT IV CONTRAST on 03/23/2019 12:00 AM [employer] FINDINGS: Midline structures are normal. There are no areas of restricted diffusion. There is mild diffuse cerebral atrophy. There is no hemorrhage, midline shift or mass effect. There is no hydrocephalus. There are no abnormal extra-axial fluid collections. There are minimal areas of T2 prolongation within the periventricular white matter. Intracranial flow voids are present. Paranasal sinuses, orbits, globes and mastoid air cells are all unremarkable. IMPRESSION: Normal study.
[2019-03-23] MEDS ORDERED: POLYVINYL ALCOHOL 1.4% OPH SOLN 15 ML OU PRN (23:44)
[2019-03-23] MEDS ORDERED: ATORVASTATIN CALCIUM 20 MG TABLET PO ONE (23:59)
[2019-03-24] MEDS: NITROGLYCERIN 2% OINTMENT 1 GM PACKET TP SCH ×5 (00:48→23:27)
[2019-03-24 01:16] LABS: CREATINE KINASE MB 0.85 ng/mL (<4.55); TROPONIN I 0.016 ng/mL
[2019-03-24] MEDS: HEPARIN SOD (PORCINE) 5,000 UNIT/ML 1 ML VIAL SUBCUT SCH ×3 (05:21→22:42)
[2019-03-24 07:31] LABS: CREATINE KINASE MB 0.73 ng/mL (<4.55); TROPONIN I 0.016 ng/mL
[2019-03-24] MEDS: SUCRALFATE 1 GM TABLET PO SCH ×4 (07:47→22:42)
[2019-03-24] MEDS: METOCLOPRAMIDE HCL 10 MG TABLET PO SCH ×4 (07:47→22:43)
--- NOTE | 2019-03-24 08:06 | PDOC PROGRESS REPORT ---
Subjective Progress Note for:: 03/24/19 Subjective:: 03/24/2019-no complaints this a.m. Reason For Visit: CHEST PAIN,FACIAL DROOP Physical Exam Vital Signs: Temp Pulse Resp BP Pulse Ox 97.6 F 63 14 138/72 H 98 03/24/19 03:37 03/24/19 03:37 03/24/19 03:37 03/24/19 05:30 03/24/19 03:37 Intake & Output 03/23/19 03/24/19 03/25/19 06:59 06:59 06:59 Intake Total 100 Output Total 0 Balance 100 Weight 71.9 kg General appearance: PRESENT: no acute distress, well-developed, well-nourished Head exam: PRESENT: atraumatic, normocephalic Eye exam: PRESENT: conjunctiva pink, EOMI, PERRLA. ABSENT: scleral icterus Ear exam: PRESENT: normal external ear exam Mouth exam: PRESENT: moist, tongue midline Neck exam: ABSENT: carotid bruit, JVD, lymphadenopathy, thyromegaly Respiratory exam: PRESENT: clear to auscultation chava. ABSENT: rales, rhonchi, wheezes Cardiovascular exam: PRESENT: RRR. ABSENT: diastolic murmur, rubs, systolic murmur Pulses: PRESENT: normal dorsalis pedis pul Vascular exam: PRESENT: normal capillary refill GI/Abdominal exam: PRESENT: normal bowel sounds, soft. ABSENT: distended, gua rding, mass, organolmegaly, rebound, tenderness Rectal exam: PRESENT: deferred Extremities exam: PRESENT: full ROM. ABSENT: calf tenderness, clubbing, pedal edema Neurological exam: PRESENT: alert, awake, oriented to person, oriented to place, oriented to time, oriented to situation, CN II-XII grossly intact. ABSENT: harris r sensory deficit Psychiatric exam: PRESENT: appropriate affect, normal mood. ABSENT: homicidal ideation, suicidal ideation Skin exam: PRESENT: dry, intact, warm. ABSENT: cyanosis, rash Results Laboratory Results: 03/23/19 13:26 03/23/19 13:26 03/23/19 03/23/19 03/23/19 13:14 13:26 13:26 WBC 11.4 H RBC 4.58 Hgb 13.9 Hct 41.3 MCV 90 MCH 30.4 MCHC 33.7 RDW 13.1 Plt Count 343 Seg Neutrophils % 78.3 H Sodium 140.1 Potassium 4.7 Chloride 102 Carbon Dioxide 28 Anion Gap 10 BUN 17 Creatinine 0.84 Est GFR ( Amer) > 60 Glucose 86 Calcium 10.6 H Total Bilirubin 1.6 H AST 40 Alkaline Phosphatase 124 Total Protein 7.9 Albumin 4.3 Urine Color YELLOW Urine Appearance SLIGHTLY-CLOUDY Urine pH 6.0 Ur Specific [place] 1.018 Urine Protein NEGATIVE Urine Glucose (UA) NEGATIVE Urine Ketones NEGATIVE Urine Blood NEGATIVE Urine Nitrite NEGATIVE Ur Leukocyte Esterase NEGATIVE Urine WBC (Auto) 3 Urine RBC (Auto) 2 03/23/19 03/23/19 03/24/19 13:26 18:34 00:20 Creatine Kinase 35 L CK-MB (CK-2) Troponin I 0.019 0.015 03/24/19 03/24/19 03/24/19 00:20 06:38 06:38 Creatine Kinase 33 L CK-MB (CK-2) 0.85 0.73 Troponin I 0.016 0.016 Impressions: Head MRI 03/23/19 00:00 IMPRESSION: Normal study. Chest X-Ray 03/23/19 12:56 IMPRESSION: NO ACUTE RADIOGRAPHIC FINDING IN THE CHEST. Head CT 03/23/19 12:56 IMPRESSION: NORMAL BRAIN CT WITHOUT CONTRAST. EVIDENCE OF ACUTE STROKE: NO. Assessment and Plan - Diagnosis (1) Chest tightness Is this a current diagnosis for this admission?: Yes Plan: 03/24/2019-resolved at this time. Patient's troponins have been negative thus far. Patient will undergo echocardiogram and stress test on Tuesday. Continue to follow make change Medicare is appropriate (2) Weakness on left side of face Is this a current diagnosis for this admission?: Yes Plan: 03/24/2019-resolved at this time stable continue to follow continue aspirin therapy await MRI, carotid Doppler and echocardiogram. (3) Hypertension Qualifiers: Hypertension type: essential hypertension Qualified Code(s): I10 - Essential (primary) hypertension Is this a current diagnosis for this admission?: Yes Plan: 03/24/2019-stable at this time continue to follow (4) Bipolar disorder Qualifiers: Active/Remission status: in remission of unspecified degree Qualified Code(s): F31.70 - Bipolar disorder, currently in remission, most recent episode unspecified Is this a current diagnosis for this admission?: Yes Plan: 03/24/2019-in remission. Continue to follow (5) Post traumatic stress disorder (PTSD) Is this a current diagnosis for this admission?: Yes Plan: 03/24/2019-continue sertraline - Plan Summary Summary: Patient is admitted to observation status in a telemetry bed. He will have an MRI of his brain without contrast, a bilateral carotid Doppler evaluation and an echocardiogram performed to evaluate his left facial weakness. His chest pain will be evaluated with a Cardiolite stress test if his cardiac enzymes remain negative for acute coronary injury or ischemia. He will use morphine sulfate 2 to 4 mg IV every 2 hours on an as-needed basis for control of his chest pain/tightness. Nitroglycerin ointment 0.5 g every 6 hours will be applied. He will be continued on his usual medications for control of his chronic medical problems as appropriate. Further evaluations will be obtained as needed. - Time Time Spent with patient: 15-24 minutes - Inpatient Certification Based on my medical assessment, after consideration of the patient's comorbidities, presenting symptoms, or acuity I expect that the services needed warrant INPATIENT care.: Yes
[2019-03-24] MEDS: HYDROCHLOROTHIAZIDE 25 MG TABLET PO SCH (10:00)
[2019-03-24] MEDS: FAMOTIDINE 20 MG TABLET PO SCH ×2 (10:00→22:43)
[2019-03-24] MEDS: METOPROLOL TARTRATE 25 MG TABLET PO SCH ×2 (10:01→22:43)
[2019-03-24] MEDS: DOCUSATE SODIUM 100 MG CAPSULE PO SCH ×2 (10:01→17:08)
[2019-03-24] MEDS: SERTRALINE HCL 50 MG TABLET PO SCH (10:01)
[2019-03-24] MEDS: ASPIRIN 81 MG TABLET, ENT COATED PO SCH (10:01)
--- NOTE | 2019-03-24 11:35 | EKG REPORT ---
SEVERITY:- NORMAL ECG - SINUS RHYTHM : Confirmed by: Viktoriya Toussaint MD 24-Mar-2019 11:35:14
[2019-03-24 13:27] LABS: CREATINE KINASE MB 0.71 ng/mL (<4.55); TROPONIN I 0.016 ng/mL
[2019-03-24] MEDS: ACETAMINOPHEN 325 MG TABLET PO PRN (18:06)
[2019-03-24] MEDS: ATORVASTATIN CALCIUM 20 MG TABLET PO SCH (22:42)
[2019-03-25] MEDS: NITROGLYCERIN 2% OINTMENT 1 GM PACKET TP SCH ×4 (05:12→23:03)
[2019-03-25] MEDS: HEPARIN SOD (PORCINE) 5,000 UNIT/ML 1 ML VIAL SUBCUT SCH ×3 (05:12→21:25)
--- NOTE | 2019-03-25 08:03 | PDOC PROGRESS REPORT ---
Subjective Progress Note for:: 03/25/19 Subjective:: 03/24/2019-no complaints this a.m. 03/25/2019-no complaints Reason For Visit: CHEST PAIN,FACIAL DROOP Physical Exam Vital Signs: Temp Pulse Resp BP Pulse Ox 97.6 F 53 L 18 101/59 L 96 03/25/19 03:30 03/25/19 07:00 03/25/19 03:30 03/25/19 03:30 03/25/19 03:30 Intake & Output 03/24/19 03/25/19 03/26/19 06:59 06:59 06:59 Intake Total 100 1037 Output Total 0 Balance 100 1037 Weight 71.9 kg 71.6 kg General appearance: PRESENT: no acute distress, well-developed, well-nourished Neck exam: ABSENT: carotid bruit, JVD, lymphadenopathy, thyromegaly Respiratory exam: PRESENT: clear to auscultation chava. ABSENT: rales, rhonchi, wheezes Cardiovascular exam: PRESENT: RRR. ABSENT: diastolic murmur, rubs, systolic murmur Pulses: PRESENT: normal dorsalis pedis pul GI/Abdominal exam: PRESENT: normal bowel sounds, soft. ABSENT: distended, guarding, mass, organolmegaly, rebound, tenderness Extremities exam: PRESENT: full ROM. ABSENT: calf tenderness, clubbing, pedal edema Neurological exam: PRESENT: alert, awake, oriented to person, oriented to place, oriented to time, oriented to situation, CN II-XII grossly intact. ABSENT: motor sensory deficit Psychiatric exam: PRESENT: appropriate affect, normal mood. ABSENT: homicidal ideation, suicidal ideation Skin exam: PRESENT: dry, intact, warm. ABSENT: cyanosis, rash Results Laboratory Results: 03/23/19 13:26 03/23/19 13:26 03/23/19 03/23/19 03/24/19 13:26 18:34 00:20 Creatine Kinase 35 L CK-MB (CK-2) Troponin I 0.019 0.015 03/24/19 03/24/19 03/24/19 00:20 06:38 06:38 Creatine Kinase 33 L CK-MB (CK-2) 0.85 0.73 Troponin I 0.016 0.016 03/24/19 03/24/19 12:29 12:29 Creatine Kinase 31 L CK-MB (CK-2) 0.71 Troponin I 0.016 Impressions: Head MRI 03/23/19 00:00 IMPRESSION: Normal study. Chest X-Ray 03/23/19 12:56 IMPRESSION: NO ACUTE RADIOGRAPHIC FINDING IN THE CHEST. Head CT 03/23/19 12:56 IMPRESSION: NORMAL BRAIN CT WITHOUT CONTRAST. EVIDENCE OF ACUTE STROKE: NO. Assessment and Plan - Diagnosis (1) Chest tightness Is this a current diagnosis for this admission?: Yes Plan: 03/24/2019-resolved at this time. Patient's troponins have been negative thus far. Patient will undergo echocardiogram and stress test on Tuesday. Continue to follow make change Medicare is appropriate 03/25/2019-troponins remain negative. Will await echocardiogram and stress test on Tuesday (2) Weakness on left side of face Is this a current diagnosis for this admission?: Yes Plan: 03/24/2019-resolved at this time stable continue to follow continue aspirin therapy await MRI, carotid Doppler and echocardiogram. 03/25/2019-stable continue to await MRI carotid Doppler and echo (3) Hypertension Qualifiers: Hypertension type: essential hypertension Qualified Code(s): I10 - Essential (primary) hypertension Is this a current diagnosis for this admission?: Yes Plan: 03/24/2019-stable at this time continue to follow 03/25/2019-stable (4) Bipolar disorder Qualifiers: Active/Remission status: in remission of unspecified degree Qualified Code(s): F31.70 - Bipolar disorder, currently in remission, most recent episode unspecified Is this a current diagnosis for this admission?: Yes Plan: 03/24/2019-in remission. Continue to follow 03/25/2019-stable (5) Post traumatic stress disorder (PTSD) Is this a current diagnosis for this admission?: Yes Plan: 03/24/2019-continue sertraline 03/25/2019-continue sertraline - Plan Summary Summary: Patient is admitted to observation status in a telemetry bed. He will have an MRI of his brain without contrast, a bilateral carotid Doppler evaluation and an echocardiogram performed to evaluate his left facial weakness. His chest pain will be evaluated with a Cardiolite stress test if his cardiac enzymes remain negative for acute coronary injury or ischemia. He will use morphine sulfate 2 to 4 mg IV every 2 hours on an as-needed basis for control of his chest pain/tightness. Nitroglycerin ointment 0.5 g every 6 hours will be applied. He will be continued on his usual medications for control of his chronic medical problems as appropriate. Further evaluations will be obtained as needed. - Time Time Spent with patient: 15-24 minutes
[2019-03-25] MEDS: SUCRALFATE 1 GM TABLET PO SCH ×4 (08:06→21:26)
[2019-03-25] MEDS: METOCLOPRAMIDE HCL 10 MG TABLET PO SCH ×4 (08:06→21:26)
[2019-03-25] MEDS: DOCUSATE SODIUM 100 MG CAPSULE PO SCH ×2 (09:11→17:28)
[2019-03-25] MEDS: ACETAMINOPHEN 325 MG TABLET PO PRN (09:19)
[2019-03-25] MEDS: SERTRALINE HCL 50 MG TABLET PO SCH (09:20)
[2019-03-25] MEDS: ASPIRIN 81 MG TABLET, ENT COATED PO SCH (09:20)
[2019-03-25] MEDS: METOPROLOL TARTRATE 25 MG TABLET PO SCH ×2 (09:20→21:25)
[2019-03-25] MEDS: FAMOTIDINE 20 MG TABLET PO SCH ×2 (09:20→21:25)
[2019-03-25] MEDS: HYDROCHLOROTHIAZIDE 25 MG TABLET PO SCH (09:20)
[2019-03-25] MEDS: ATORVASTATIN CALCIUM 20 MG TABLET PO SCH (21:26)
[2019-03-26] MEDS: NITROGLYCERIN 2% OINTMENT 1 GM PACKET TP SCH (05:27)
[2019-03-26] MEDS: HEPARIN SOD (PORCINE) 5,000 UNIT/ML 1 ML VIAL SUBCUT SCH (05:30)
--- NOTE | 2019-03-26 08:39 | PDOC DISCHARGE SUMMARY ---
Impression - Admit/DC Date/PCP Admission Date/Primary Care Provider: 03/23/19 20:14 NAYELY ADAME MD Discharge Date: 03/26/19 - Discharge Diagnosis (1) Chest tightness Is this a current diagnosis for this admission?: Yes (2) Weakness on left side of face Is this a current diagnosis for this admission?: Yes (3) Hypertension Is this a current diagnosis for this admission?: Yes (4) Bipolar disorder Is this a current diagnosis for this admission?: Yes (5) Post traumatic stress disorder (PTSD) Is this a current diagnosis for this admission?: Yes - Assessment Summary: Patient is admitted to observation status in a telemetry bed. He will have an MRI of his brain without contrast, a bilateral carotid Doppler evaluation and an echocardiogram performed to evaluate his left facial weakness. His chest pain will be evaluated with a Cardiolite stress test if his cardiac enzymes remain negative for acute coronary injury or ischemia. He will use morphine sulfate 2 to 4 mg IV every 2 hours on an as-needed basis for control of his chest pain/tightness. Nitroglycerin ointment 0.5 g every 6 hours will be applied. He will be continued on his usual medications for control of his chronic medical pr oblems as appropriate. Further evaluations will be obtained as needed. - Additional Information Resuscitation Status: Full Code Discharge Diet: As Tolerated Discharge Activity: Activity As Tolerated Referrals: NAYELY AADME MD [Primary Care Provider] - Follow up as needed Home Medications: Aspirin [Aspirin EC] 81 mg PO DAILY 07/29/17 Atorvastatin Calcium 20 mg PO DAILY 07/29/17 Hydrochlorothiazide 12.5 mg PO DAILY 07/29/17 Sertraline HCl 100 mg PO DAILY 07/29/17 Metoprolol Tartrate [Lopressor 25 mg Tablet] 12.5 mg PO Q12 08/23/17 Propylene Glycol [Lubricant Eye Drop] 1 drop OU BIDP PRN 03/23/19 Sildenafil Citrate [Viagra] 100 mg PO ASDIR PRN 03/23/19 History of Present Illiness History of Present Illness: PAMELA HART is a 73 year old male presented to the ER with chest tightness. Patient also complained of left eye weakness. Hospital Course Hospital Course: Patient presented to ER with chest tightness and left-sided weakness. Patient underwent serial troponins which were negative, MRI of the brain which was negative, carotid Doppler negative. Patient will undergo a cardiac stress test this morning which I suspect will be negative as well. We will send patient home he will follow-up with his primary care within 1 week. Patient will continue on aspirin daily. Patient needs to see an outpatient neurologist to be tested for any form of dementia. I have talked to patient's and she agrees with plan of care. Physical Exam Vital Signs: Temp Pulse Resp BP Pulse Ox 97.9 F 59 L 18 113/61 96 03/26/19 07:11 03/26/19 07:11 03/26/19 07:11 03/26/19 07:11 03/26/19 07:11 Intake & Output 03/25/19 03/26/19 03/27/19 06:59 06:59 06:59 Intake Total 1037 2016 Balance 1037 2015 Weight 71.6 kg 72.1 kg General appearance: PRESENT: no acute distress, well-developed, well-nourished Head exam: PRESENT: atraumatic, normocephalic Eye exam: PRESENT: conjunctiva pink, EOMI, PERRLA. ABSENT: scleral icterus Ear exam: PRESENT: normal external ear exam Mouth exam: PRESENT: moist, tongue midline Neck exam: ABSENT: carotid bruit, JVD, lymphadenopathy, thyromegaly Respiratory exam: PRESENT: clear to auscultation chava. ABSENT: rales, rhonchi, wheezes Cardiovascular exam: PRESENT: RRR. ABSENT: diastolic murmur, rubs, systolic murmur Pulses: PRESENT: normal dorsalis pedis pul Vascular exam: PRESENT: normal capillary refill GI/Abdominal exam: PRESENT: normal bowel sounds, soft. ABSENT: distended, guarding, mass, organolmegaly, rebound, tenderness Rectal exam: PRESENT: deferred Extremities exam: PRESENT: full ROM. ABSENT: calf tenderness, clubbing, pedal edema Neurological exam: PRESENT: alert, awake, oriented to person, oriented to place, oriented to time, oriented to situation, CN II-XII grossly intact. ABSENT: motor sensory deficit Psychiatric exam: PRESENT: appropriate affect, normal mood. ABSENT: homicidal ideation, suicidal ideation Skin exam: PRESENT: dry, intact, warm. ABSENT: cyanosis, rash Results Laboratory Results: WBC 11.4 10^3/uL (4.0-10.5) H 03/23/19 13:26 RBC 4.58 10^6/uL (4.35-5.55) 03/23/19 13:26 Hgb 13.9 g/dL (13.5-17.0) 03/23/19 13:26 Hct 41.3 % (37.9-51.0) 03/23/19 13:26 MCV 90 fl (80-97) 03/23/19 13:26 MCH 30.4 pg (27.0-33.4) 03/23/19 13:26 MCHC 33.7 g/dL (32.0-36.0) 03/23/19 13:26 RDW 13.1 % (11.5-14.0) 03/23/19 13:26 Plt Count 343 10^3/uL (150-450) 03/23/19 13:26 Lymph % (Auto) 12.5 % (13-45) L 03/23/19 13:26 Casey % (Auto) 7.3 % (3-13) 03/23/19 13:26 Eos % (Auto) 1.5 % (0-6) 03/23/19 13:26 Baso % (Auto) 0.4 % (0-2) 03/23/19 13:26 Absolute Neuts (auto) 8.9 10^3/uL (1.7-8.2) H 03/23/19 13:26 Absolute Lymphs (auto) 1.4 10^3/uL (0.5-4.7) 03/23/19 13:26 Absolute Monos (auto) 0.8 10^3/uL (0.1-1.4) 03/23/19 13:26 Absolute Eos (auto) 0.2 10^3/uL (0.0-0.6) 03/23/19 13:26 Absolute Basos (auto) 0.0 10^3/uL (0.0-0.2) 03/23/19 13:26 Seg Neutrophils % 78.3 % (42-78) H 03/23/19 13:26 Sodium 140.1 mmol/L (137-145) 03/23/19 13:26 Potassium 4.7 mmol/L (3.6-5.0) 03/23/19 13:26 Chloride 102 mmol/L (98-107) 03/23/19 13:26 Carbon Dioxide 28 mmol/L (22-30) 03/23/19 13:26 Anion Gap 10 (5-19) 03/23/19 13:26 BUN 17 mg/dL (7-20) 03/23/19 13:26 Creatinine 0.84 mg/dL (0.52-1.25) 03/23/19 13:26 Est GFR ( Amer) > 60 (>60) 03/23/19 13:26 Est GFR (MDRD) Non-Af > 60 (>60) 03/23/19 13:26 Glucose 86 mg/dL (75-110) 03/23/19 13:26 Calcium 10.6 mg/dL (8.4-10.2) H 03/23/19 13:26 Total Bilirubin 1.6 mg/dL (0.2-1.3) H 03/23/19 13:26 Direct Bilirubin 0.1 mg/dL (0.0-0.4) 03/23/19 13:26 Neonat Total Bilirubin Not Reportable 03/23/19 13:26 Neonat Direct Bilirubin Not Reportable 03/23/19 13:26 Neonat Indirect Bili Not Reportable 03/23/19 13:26 AST 40 U/L (17-59) 03/23/19 13:26 ALT 42 U/L (<50) 03/23/19 13:26 Alkaline Phosphatase 124 U/L (38-126) 03/23/19 13:26 Creatine Kinase 31 U/L (55-170) L 03/24/19 12:29 CK-MB (CK-2) 0.71 ng/mL (<4.55) 03/24/19 12:29 Troponin I 0.016 ng/mL 03/24/19 12:29 Total Protein 7.9 g/dL (6.3-8.2) 03/23/19 13:26 Albumin 4.3 g/dL (3.5-5.0) 03/23/19 13:26 Urine Color YELLOW 03/23/19 13:14 Urine Appearance SLIGHTLY-CLOUDY 03/23/19 13:14 Urine pH 6.0 (5.0-9.0) 03/23/19 13:14 Ur Specific [place] 1.018 03/23/19 13:14 Urine Protein NEGATIVE mg/dL (NEGATIVE) 03/23/19 13:14 Urine Glucose (UA) NEGATIVE mg/dL (NEGATIVE) 03/23/19 13:14 Urine Ketones NEGATIVE mg/dL (NEGATIVE) 03/23/19 13:14 Urine Blood NEGATIVE (NEGATIVE) 03/23/19 13:14 Urine Nitrite NEGATIVE (NEGATIVE) 03/23/19 13:14 Urine Bilirubin NEGATIVE (NEGATIVE) 03/23/19 13:14 Urine Urobilinogen NEGATIVE mg/dL (<2.0) 03/23/19 13:14 Ur Leukocyte Esterase NEGATIVE (NEGATIVE) 03/23/19 13:14 Urine WBC (Auto) 3 /HPF 03/23/19 13:14 Urine RBC (Auto) 2 /HPF 03/23/19 13:14 Amorphous Sediment Auto TRACE /HPF 03/23/19 13:14 Urine Mucus (Auto) RARE /LPF 03/23/19 13:14 Urine Yeast (Budding) PRESENT /HPF 03/23/19 13:14 Urine Ascorbic Acid NEGATIVE (NEGATIVE) 03/23/19 13:14 03/23/19 03/23/19 03/24/19 13:26 18:34 00:20 CK-MB (CK-2) 0.85 Troponin I 0.019 0.015 0.016 03/24/19 03/24/19 06:38 12:29 CK-MB (CK-2) 0.73 0.71 Troponin I 0.016 0.016 Impressions: Head MRI 03/23/19 00:00 IMPRESSION: Normal study. Chest X-Ray 03/23/19 12:56 IMPRESSION: NO ACUTE RADIOGRAPHIC FINDING IN THE CHEST. Head CT 03/23/19 12:56 IMPRESSION: NORMAL BRAIN CT WITHOUT CONTRAST. EVIDENCE OF ACUTE STROKE: NO. Plan Time Spent: Greater than 30 Minutes Stroke Is this a Stroke Patient?: No Acute Heart Failure - Is this a Heart Failure Patient?: No
[2019-03-26] MEDS: DOCUSATE SODIUM 100 MG CAPSULE PO SCH (09:43)
[2019-03-26] MEDS: SUCRALFATE 1 GM TABLET PO SCH (09:52)
[2019-03-26] MEDS: METOPROLOL TARTRATE 25 MG TABLET PO SCH (09:52)
[2019-03-26] MEDS: METOCLOPRAMIDE HCL 10 MG TABLET PO SCH (09:52)
[2019-03-26] MEDS: SERTRALINE HCL 50 MG TABLET PO SCH (09:53)
[2019-03-26] MEDS: ASPIRIN 81 MG TABLET, ENT COATED PO SCH (09:53)
[2019-03-26] MEDS: HYDROCHLOROTHIAZIDE 25 MG TABLET PO SCH (09:53)
[2019-03-26] MEDS: FAMOTIDINE 20 MG TABLET PO SCH (09:53)
[2019-03-26 10:06] VITALS: BP 132/80
--- NOTE | 2019-03-26 12:44 | RADIOLOGY REPORT (SQ) ---
EXAM DESCRIPTION: CAROTID DOPPLER COMPLETED DATE/TIME: 03/26/2019 11:57 am REASON FOR STUDY: Left facial weakness COMPARISON: None. TECHNIQUE: Grayscale ultrasound, Doppler velocity and spectra, and color Doppler images acquired of the extra-cranial carotid and vertebral arteries. Images stored on PACS. LIMITATIONS: None. FINDINGS: RIGHT CAROTID CCA Velocities: Within normal limits. ICA Velocities Peak systolic 85 cm/s. End diastolic 31 cm/s. Proximal ICA/CCA peak systolic ratio 0.9. Spectra normal. No significant plaque. LEFT CAROTID CCA Velocities: Within normal limits. ICA Velocities Peak systolic 102 cm/s. End diastolic 38 cm/s. Proximal ICA/CCA peak systolic ratio 1.2. Spectra normal. No significant plaque. VERTEBRAL ARTERIES: Antegrade flow. Normal waveforms. SUBCLAVIAN ARTERIES: No finding. OTHER: No other significant finding. IMPRESSION: NO HEMODYNAMICALLY SIGNIFICANT STENOSIS. COMMENT: Quality ID #[id number]: Velocity criteria are extrapolated from the diameter data as defined by t he Society of Radiologists in Ultrasound Consensus Conference. Radiology 2003: 229; 340-346. TECHNICAL DOCUMENTATION: JOB ID: [id number] [employer]- All Rights Reserved Reading location - IP/workstation name: [email or web address]
--- NOTE | 2019-03-26 15:11 | XCELERA REPORT ---
[address] [address] Transthoracic Echocardiogram Report Name: PAMELA HART JR Age: 73 yrs Gender: Male : 1945 Patient Status: Inpatient Patient Location: [address] [place], [place] [address] Study Date: 03/26/2019 10:49 AM Height: 69 in Weight: 164 lb BSA: 1.9 m2 Procedure: A two-dimensional transthoracic echocardiogram with color flow and Doppler was performed. Study Quality: Fair. Reason For Study: Chest tightness,/ CVA History: Chest tightness, / CVA. Ordering Physician: PAT MENDEZ Performed By: Tennille Arechiga Interpretation Summary There is no obvious cardiac source of embolus noted on this transthoracic echocardiogram. Follow-up with a JAMES is suggested if cardiac source is still suspected. The left ventricle is normal in size. There is normal left ventricular wall thickness. LV EF is > than 65% Left ventricular systolic function is normal. Doppler measurements suggest normal left ventricular diastolic function The left ventricular wall motion is normal. There is no thrombus. No ASD,VSD , or PFO seen. The right ventricle is normal in size and function. The right ventricular systolic function is normal. There is normal right ventricular wall thickness. The right atrium is normal. The left atrial size is normal. There is no evidence of mitral valve prolapse. There is no vegetation seen on the mitral valve. There is no mitral valve stenosis. There is a trace amount of mitral regurgitation There is no aortic valvular vegetation. There is no aortic valve stenosis There is no LVOT obstruction. There is a mild amount of aortic regurgitation There is no tricuspid stenosis. There is a mild amount of tricuspid regurgitation Upper normal to mild pulmonary hypertension.RVSP is 30 to 35 mm of Hg ,m with RA mean of 5 to 10. There is no pulmonic valvular stenosis. There is a trace amount of pulmonic regurgitation The aortic root is normal size. The inferior vena cava appeared normal and decreased > 50% with respiration (RAP 5-10 mmHg) There is no pericardial effusion. There is no obvious cardiac source of embolus noted on this transthoracic echocardiogram. Follow-up with a JAMES is suggested if cardiac source is still suspected MMode/2D Measurements & Calculations RVDd: 4.1 cm LVIDd: 4.4 cm FS: 39.4 % Ao root diam: 3.3 cm IVSd: 0.98 cm LVIDs: 2.7 cm EDV(Teich): Ao root area: LVPWd: 0.98 cm 89.8 ml 8.6 cm2 ESV(Teich): LA dimension: 3.4 cm 26.9 ml EF(Teich): 70.1 % LVLd ap4: 8.0 cm SV(MOD-sp4): EDV(MOD-sp4): 66.0 ml 93.0 ml LVLs ap4: 6.5 cm ESV(MOD-sp4): 27.0 ml EF(MOD-sp4): 71.0 % Doppler Measurements & Calculations MV E max wayne: MV P1/2t max wayne: Ao V2 max: AI max wayne: 94.3 cm/sec 94.8 cm/sec 129.0 cm/sec 373.5 cm/sec MV A max wayne: MV P1/2t: 64.3 msec Ao max PG: AI max P.9 cm/sec MVA(P1/2t): 3.4 cm2 6.7 mmHg 55.8 mmHg MV E/A: 1.2 MV dec slope: AI dec slope: 431.9 cm/sec2 221.1 cm/sec2 MV dec time: AI P1/2t: 0.23 sec 494.8 msec LV V1 max PG: PA V2 max: PI end-d wayne: TR max wayne: 6.0 mmHg 94.8 cm/sec 72.7 cm/sec 250.2 cm/sec LV V1 max: PA max P.6 mmHg TR max P.9 cm/sec 25.0 mmHg AV P1/2t-pr_phl: MV P1/2t-pr_phl: 494.8 msec 64.3 msec Left Ventricle The left ventricle is normal in size. There is normal left ventricular wall thickness. LV EF is > than 65%. Left ventricular systolic function is normal. Doppler measurements suggest normal left ventricular diastolic function. The left ventricular wall motion is normal. There is no thrombus. No ASD,VSD , or PFO seen. Right Ventricle The right ventricle is normal in size and function. There is normal right ventricular wall thickness. The right ventricular systolic function is normal. Atria The right atrium is normal. The left atrial size is normal. Mitral Valve There is no evidence of mitral valve prolapse. There is no vegetation seen on the mitral valve. There is no mitral valve stenosis. There is a trace amount of mitral regurgitation. Aortic Valve There is no aortic valvular vegetation. There is no aortic valve stenosis. There is no LVOT obstruction. There is a mild amount of aortic regurgitation. Tricuspid Valve There is no tricuspid stenosis. There is a mild amount of tricuspid regurgitation. Upper normal to mild pulmonary hypertension.RVSP is 30 to 35 mm of Hg ,m with RA mean of 5 to 10. Pulmonic Valve There is no pulmonic valvular stenosis. There is a trace amount of pulmonic regurgitation. Great Vessels The aortic root is normal size. The inferior vena cava appeared normal and decreased > 50% with respiration (RAP 5-10 mmHg). Effusions There is no pericardial effusion. : PAT MENDEZ Lakshmi
--- NOTE | 2019-03-26 22:10 | RADIOLOGY REPORT (SQ) ---
REST CARDIOLITE IMAGING: Procedure The patient had resting images done after injection of 11.72 mCi of technetium sestamibi 99 M Subsequently rest imagings were done. The stress portion of the test was not performed since the patient had been placed on nitroglycerin just about a couple of hours ago. Review of the resting images show that there is normal perfusion in all segments of the myocardial. Hence it can be concluded there is no evidence of myocardial infarction. The patient will be scheduled for stress portion of this Cardiolite stress test as an outpatient. [email or web address]
== END 2019-03-26 12:52 | disposition home or self-care (01) ==
LOC: ER 12:20 → EH 20:14 → 3W 03-24 01:43
PROVIDERS: ADMIT Emergency Medicine; ATTEND Emergency Medicine
DX: R07.89 Other chest pain (principal); R29.810 Facial weakness; I10 Essential (primary) hypertension; Z79.82 Long term (current) use of aspirin; R41.3 Other amnesia; R41.0 Disorientation, unspecified; F43.10 Post-traumatic stress disorder, unspecified; R10.9 Unspecified abdominal pain; F31.70 Bipolar disorder, currently in remission, most recent episode unspecified; Z79.899 Other long term (current) drug therapy; Z82.49 Family history of ischemic heart disease and other diseases of the circulatory system; Z82.3 Family history of stroke; Z98.890 Other specified postprocedural states
CPT/HCPCS: 93005; 99285; 36415 ×2; 82553; 82550; 85025; 80053; 81001; 84484 ×2; 93306; 93880; 70551; 71046; 78451; 70450; 93010; G0378 ×5; A9500; J1644 ×4; J3490 ×4; Q9969